=== PATIENT | male | born 1985 | race Caucasian/White ===

== ENCOUNTER 2019-12-22 16:20 | Emergency (ER) | payer BC ==
[~2019-12-22] VITALS: Ht 185.4 cm; Wt 138.3 kg
[2019-12-22 17:03] LABS: ABSOLUTE NEUTROPHILS 6.7 thou/uL (1.4-8.2); BASOPHILS 1.5 % (0.0-2.0); EOSINOPHILS 2.6 % (0.0-3.0); HEMATOCRIT 44.3 % (42.0-52.0); HEMOGLOBIN 15.6 gm/dL (14.0-18.0); LYMPHOCYTES 22.2 % (24.0-44.0); MCH 31.7 pg (26.0-34.0); MCHC 35.2 g/dL (28.0-37.0); MCV 90.1 fL (80.0-100.0); MONOCYTES 7.2 % (1.0-8.0); PLATELET COUNT 270 thou/uL (150-400); POLYS 66.5 % (36.0-66.0); RBC 4.92 mil/uL (4.50-6.00); RDW 12.6 % (10.5-14.5); WBC 10.1 thou/uL (4.0-11.0)
[2019-12-22 17:19] LABS: ANION GAP 12 mmol/L (7-16); BUN 12 mg/dL (7-18); CALCIUM 9.6 mg/dL (8.5-10.1); CHLORIDE 97 mmol/L (98-107); CO2 24 mmol/L (21-32); CREATININE 0.9 mg/dL (0.7-1.3); GLUCOSE 270 mg/dL (74-106); POTASSIUM 4.4 mmol/L (3.5-5.1); SODIUM 133 mmol/L (136-145)
[2019-12-22 17:24] LABS: TROPONIN-I <0.06 ng/mL (<0.06)
[2019-12-22] MEDS ORDERED: VITAMIN D250 MC1 PO (17:41)
[2019-12-22] MEDS ORDERED: FENOFIBRATE54 MG PO (17:42)
[2019-12-22] MEDS ORDERED: ATORVASTATIN CA80 MG PO (17:42)
[2019-12-22] MEDS ORDERED: METFORMIN HCL500 M3 PO (17:42)
[2019-12-22] MEDS ORDERED: SPIRONOLACTONE25 MG PO (17:42)
[2019-12-22] MEDS ORDERED: PRINIVIL20 M1 PO (17:43)
[2019-12-22] MEDS ORDERED: CARVEDILOL25 MG PO (17:43)
[2019-12-22 17:49] VITALS: BP 142/74
--- NOTE | 2019-12-23 08:53 | EKG ---
[facility] [place] [address] ELECTROCARDIOGRAM REPORT Name: JIM LARSON RYAN Room #: DEP [facility]#: [id number] Admission: 12/22/19 Attend Phys: Discharge: 12/22/19 Date of : 83 Report #: [id number] THIS REPORT FOR: cc: JOE Glynn family physician/PCP JOE - Gretta family physician/PCP Vance Vergara MD [facility] THIS REPORT FOR: //name// [facility] ED Test Date: 2019-12-22 Test Time: 16:45:57 Pat Name: JIM LARSON Department: Room: Gender: Program Review Director: CALLIE : 1985 Requested By: Brando Lai Order Number: [id number] MD: Vance Vergara Measurements Intervals [place] Rate: 83 P: 30 TN: 167 QRS: -37 QRSD: 106 T: 64 QT: 362 QTc: 426 Interpretive Statements Sinus rhythm Left anterior hemiblock Poor R wave progression Voltage criteria for LVH Baseline wander in lead(s) II,V1 No previous ECG available for comparison Electronically Signed On 12-23-2019 8:52:50 CDT by Vance Vergara [email or web address] <ELECTRONICALLY SIGNED> By: Vance Vergara MD, [facility] 12/23/19 [id number] Vance Vergara MD, [facility] /EPI
== END 2019-12-22 17:49 | disposition home or self-care (01) ==
LOC: ER 16:20
PROVIDERS: Nurse Practitioner
DX: I10 Essential (primary) hypertension (principal); E11.65 Type 2 diabetes mellitus with hyperglycemia; F17.210 Nicotine dependence, cigarettes, uncomplicated; Z88.0 Allergy status to penicillin; Z88.1 Allergy status to other antibiotic agents